=== PATIENT | female | born 1995 | race Caucasian/White ===

== ENCOUNTER 2025-03-28 06:46 | Emergency (ER) | payer MEDICAID, SELFPAY ==
[2025-03-28 06:47] VITALS: BP 114/77; PULSE 100; RESP 17; TEMP 36.7; O2SAT 96
[2025-03-28 07:19] LABS: Basophils # (Auto) 0.0 Thou/mm3 (0.0-0.2); Basophils % (Auto) 0 % (0-2.5); Eosinophils # (Auto) 0.1 Thou/mm3 (0.0-0.5); Eosinophils % (Auto) 2 % (0-10); Hematocrit 40.8 % (36.0-46.0); Hemoglobin 13.5 g/dL (12.0-16.0); Immature Granulocytes Auto 0.01 Thou/mm3 (0.00-0.00); Lymphocytes # (Auto) 1.7 Thou/mm3 (1.0-4.8); Lymphocytes % (Auto) 25 % (10-50); Mean Corpuscular HGB Conc 33.1 g/dl (31.0-37.0); Mean Corpuscular Hemoglobin 28.5 pg (25.0-35.0); Mean Corpuscular Volume 86 fL (80-100); Monocytes # (Auto) 0.3 Thou/mm3 (0.0-0.8); Monocytes % (Auto) 5 % (0-12); Neutrophils # (Auto) 4.5 Thou/mm3 (1.8-7.7); Neutrophils % (Auto) 68 % (37-80); Nucleated Red Blood Cell # 0.00 Thou/mm3 (0.00-0.00); Nucleated Red Blood Cell % 0 /100 WBC (0); Platelet Count 329 Thou/mm3 (140-440); RDW Standard Deviation 39.0 fL (36.4-46.3); Red Blood Count 4.73 Miln/mm3 (4.00-5.20); White Blood Count 6.7 Thou/mm3 (3.6-11.0)
[2025-03-28 07:37] LABS: Alanine Aminotransferase 17 U/L (10-49); Albumin, Serum 4.9 gm/dL (3.5-5.0); Albumin/Globulin Ratio 2.0 (1.2-2.2); Alkaline Phosphatase 96 U/L (46-116); Anion Gap 10 (7-16); Aspartate Amino Transferase 20 U/L (0-34); BUN/Creatinine Ratio 14 Ratio (12-20); Bilirubin,Total 0.8 mg/dL (0.3-1.2); Blood Urea Nitrogen 11 mg/dL (9-23); Calcium 9.3 mg/dL (8.3-10.6); Calcium (Corrected) 9.3 mg/dL (8.5-10.1); Carbon Dioxide 24.9 mMol/L (20.0-31.0); Chloride 106 mMol/L (98-107); Creatinine (Component) 0.8 mg/dL (0.6-1.3); Globulin 2.4 gm/dL (2.3-3.5); Glucose 89 mg/dL (74-106); Lipase 35 U/L (12-53); Osmolality,Calculated 279 (275-295); Potassium 3.8 mMol/L (3.4-5.1); Sodium 141 mMol/L (136-145); Total Protein 7.3 gm/dL (5.7-8.2); eGFR > 60 See Note
[2025-03-28 07:41] LABS: Collection Type, Urine Clean Catch
[2025-03-28 07:55] LABS: Bilirubin,Urine Negative (Negative); Blood,Urine Negative (Negative); Color,Urine Yellow (Lt Yel-Yel); Culture Indicated,Urine Not Indicated; Glucose, Urine Negative (Negative); Ketones,Urine Negative (Negative); Leukocyte Esterase,Urine Negative (Negative); Nitrite,Urine Negative (Negative); PH,Urine 6.5 (5.0-7.0); Protein,Urine 1+ (Neg - Trace); Specific Gravity,Urine 1.034 (1.001-1.035); Squamous Epithelial Cell,Urine 9 /hpf (0-5); Urobilinogen,Urine Negative mg/dL (0.0-1.0); WBC,Urine 3 /hpf (0-5)
[2025-03-28 07:57] LABS: Clarity,Urine Hazy (Clear/Hazy); RBC,Urine 5 /hpf (0-3)
[2025-03-28 08:08] LABS: HCG Qualitative,Urine Negative
[2025-03-28] MEDS: SODIUM CHLORIDE 0.9% 1000 ML 1,000 ML 999 ML IV (08:29)
[2025-03-28] MEDS: METOCLOPRAMIDE INJ 5 MG/ML VIAL 2 ML 10 MG IVP (08:32)
--- NOTE | 2025-03-28 08:35 | PD.EDHA ---
ED Headache RME/HPI General Chief Complaint: Headache Stated Complaint: HEADACHE AND VOMITING Time Seen by Provider: 03/28/25 08:02 Arrival date/time: 03/28/25 06:46 RME / HPI RME / HPI Narrative: DR. BRODY MAIN ED EVALUATION: 29-year-old female presents to the Emergency Department for headache and vomiting that began yesterday after a dose increase in Zepbound to 7.5 mg. She reports multiple episodes of vomiting this morning and was unable to tolerate oral intake. Denies abdominal pain, diarrhea, fever, vision changes, or neck stiffness. No recent illness or sick contacts. No history of migraines or similar headaches prior to medication use. Related Data Home Medications ?Medication ?Instructions ?Recorded ?Confirmed prenat.vits,cristian,[id number] 1 tab PO QDAY 05/30/22 08/04/22 ursodiol 300 mg capsule 300 mg PO BID 08/04/22 08/04/22 Previous Rx's ?Medication ?Instructions ?Recorded acetaminophen 300 mg-codeine 15 mg 1 tab PO Q8H PRN pain #14 tabs 08/06/22 tablet ibuprofen 800 mg tablet 800 mg PO Q8H PRN pain #30 tabs 08/06/22 Allergies Allergy/AdvReac Type Severity Reaction Status Date / Time coconut Allergy Mild RASH Verified 08/04/22 19:10 Review of Systems Review of Systems Systems Reviewed: All systems reviewed, normal except as documented Past Medical History Past Medical History RESPIRATORY: Positive Asthma and Pneumonia (COVID PNEUMONIA) REPRODUCTIVE: Positive Gonorrhea (2018) PSYCHO/SOCIAL: Positive Depression and Anxiety OTHER HISTORY: Positive Hospitalization (CHILDBIRTH) Surgical History SURGICAL: Positive Section (2019) Social History SMOKING STATUS: Never smoker SUBSTANCE USE: does not use ALCOHOL: Never ED Exam Narrative Physical exam: GENERAL APPEARANCE: alert and oriented x 4, well-developed, well-nourished, no acute distress VITALS: All vitals were reviewed and the pulse ox is 96% on room air, which is normal according to my interpretation. HEENT: Normocephalic, atraumatic; pupils equal, round, reactive to light; EOMI; mucous membranes pink, moist; oropharynx clear NECK: Supple LUNGS: CTABL; no wheezes, no rales, no rhonchi HEART: Regular rate, regular rhythm; normal S1, S2; no murmurs ABDOMEN: non distended; normal BS; soft, no tenderness, no guarding, no rebound; no masses, no organomegaly, no hernia BACK: no CVA tenderness EXTREMITIES: atraumatic; no edema NEUROLOGIC: awake; alert and oriented x4; cranial nerves II-XII grossly intact; no focal sensory or motor deficits PSYCHIATRIC: appropriate mood and affect SKIN: warm, dry, normal color; no rashes Course Quality Measures none Orders Category Date Time Status Insert IV NOW Care 03/28/25 06:59 Active CBC Stat Lab 03/28/25 07:05 Completed Comprehensive Metabolic Panel Stat Lab 03/28/25 07:05 Completed HCG Qualitative,Urine Stat Lab 03/28/25 07:34 Completed Lipase Stat Lab 03/28/25 07:05 Completed UA, C/S IF [Urinalysis, C/S if Indicated] Stat Lab 03/28/25 07:34 Completed Metoclopramide Inj [Reglan Inj] Med 03/28/25 06:58 Discontinued 10 mg IVP X1 ONE Sodium Chloride 0.9% 1000 ml [Ns] 1,000 ml Med 03/28/25 06:58 Discontinued IV 999 mls/hr Vital Signs Vital signs: Vital Signs Temperature 98.0 F 03/28/25 06:47 Pulse Rate 100 03/28/25 06:47 Respiratory Rate 17 03/28/25 06:47 Blood Pressure 114/77 03/28/25 06:47 Pulse Oximetry (%) 96 03/28/25 06:47 Oxygen Delivery Method Room Air 03/28/25 06:47 Headache MDM Narrative MDM Narrative:: I, Ramila Cavanaugh, am scribing for and in the presence of Dr. Brody. 0945: Patient reports feeling better and wants to go home. Patient data External records reviewed:: [facility] previous records Clinical information provided by:: patient Social determinants that could affect healthcare access:: none Patient has the following chronic illnesses:: Takes Zepbound but otherwise no other PMHx. How is presenting disease/condition affected by chronic disease/condition?: no chronic disease Evaluation data The following diagnostics were reviewed and interpreted by me:: lab results Lab and/or radiology exams considered but not ordered:: none Interpretation Summary: No acute findings. Medications / Prescriptions Medications or Prescriptions considered but not ordered:: none Medication administrations:: Medication Administration History Discontinued Medications Sodium Chloride (Ns) 1,000 mls @ 999 mls/hr IV .Q1H1M ONE Stop: 03/28/25 07:58 Last Admin: 03/28/25 08:29 Dose: 999 mls/hr Documented By: ED Metoclopramide HCl (Metoclopramide Inj 5 Mg/Ml Vial 2 Ml) 10 mg IVP X1 ONE; Protocol Stop: 03/28/25 06:59 Last Admin: 03/28/25 08:32 Dose: 10 mg Documented By: ED see above Consultations Consultation(s) initiated? (list below): No Diagnosis Differential diagnosis headache: other (Medication side effect, dehydration, and migraine headache.) Most likely diagnosis given after review of the tests above:: Medication side effect Vomiting Admission Indicated Admission indicated?: not indicated Admission Request Was there a request for admission?: No Disposition Plan Disposition Plan: Discharge Discharge Attestation Discharge Attestation: The patient and all family members were given an opportunity to ask questions and understood the discharge instructions. Discharge instructions specifically effects, indications for sooner follow up or return to the emergency department, and the expected course of current diagnosis. Patient condition: Stable Discharge Plan Plan Patient Disposition: HOME (Self Care) Prescriptions/Referrals Prescriptions/Med Rec: No Action Vitamin Tablet 1 tab PO QDAY ursodiol 300 mg Capsule 300 mg PO BID acetaminophen-codeine 300-15 mg tablet 1 tab PO Q8H PRN (Reason: pain) Qty: 14 0RF ibuprofen 800 mg tablet 800 mg PO Q8H PRN (Reason: pain) Qty: 30 0RF Referrals: Yonis Cunha MD [Primary Care Provider, Family Practice] - In 1 week Problem List Clinical Impression: Medication side effect, Vomiting Patient/Caregiver Discharge Instructions Education Materials: ED Vomiting (Adult) Print Language: Polish Stand Alone Forms: Jennifer Award Info., Patient Portal Info Letter
--- NOTE | 2025-03-28 08:35 | PC.NURSE ---
Pt. here from home to room 1, pt. states she received her Zepbound yesterday and they increased her dose to 7.5. Pt. states she has been vomiting since she received her dose. Pt.'s Mother is bedside. 2 warm blankets given.
[2025-03-28 08:56] VITALS: BP 114/71; PULSE 66; RESP 17; O2SAT 93
--- NOTE | 2025-03-28 10:30 | PC.NURSE ---
Grape juice and water given, pt. tolerating well. Water given to pt.'s Mother.
[2025-03-28 10:39] VITALS: BP 122/70; PULSE 94; RESP 16; TEMP 36.7; O2SAT 96
== END 2025-03-28 10:40 | disposition home or self-care (01) ==
PROVIDERS: Nurse Practitioner Primary Care; Emergency Provider Emergency Medicine; PCP Family Medicine
DX: T50.905A Adverse effect of unspecified drugs, medicaments and biological substances, initial encounter (principal)
CPT/HCPCS: 36415; 80053; 81001; 81025; 83690; 85025; 96361; 96374; 99282; J2765; J7030